=== PATIENT | male | born 1980 | race Native Hawaiian/Other Pacific Islander ===

== ENCOUNTER 2017-11-23 08:32 | Emergency (ER) | payer OTHER ==
[~2017-11-23] VITALS: Ht 180.3 cm; Wt 88.0 kg
[2017-11-23 09:29] LABS: PLATELET COUNT 214 K/uL (142-355)
[2017-11-23 09:34] LABS: POTASSIUM 3.6 mmol/L (3.6-5.2)
[2017-11-23 09:45] VITALS: BP 160/85
== END 2017-11-23 09:50 | disposition home or self-care (01) ==
LOC: ED 08:32
DX: K59.00 Constipation, unspecified (principal); R10.9 Unspecified abdominal pain
CPT/HCPCS: 36415; 74022; 80053; 82150; 83690; 85027; 99283